=== PATIENT | female | born 1985 | race Caucasian/White ===

== ENCOUNTER → 2016-06-01 | Day surgery (SDC) | payer BC, OTHER ==
[~2016-06-01] VITALS: Ht 175.3 cm; Wt 81.6 kg
[~2016-06-01] MED LIST: ACETAMINOPHEN 650 MG SUPP As Ordered ONE; ACETAMINOPHEN 650 MG SUPP PR ONE; CHLOROPROCAINE 2 % INJ PRES.FREE 20 ML VIAL (J2400) As Ordered ONE; ERGO500014 PO; IBUPROFEN 800 MG TAB PO SCH; IRON1TAB PO; LIDOCAINE 2% INJ 100 MG/5 ML SDV (FOR ANES.) As Ordered ONE; LR 1,000 ML IV SCH; METOCLOPRAMIDE INJ 10MG/2ML VIAL (J2765) IV PRN; MIDAZOLAM INJ 2 MG/2 ML VIAL (J2250) As Ordered ONE; MULT1TAB10 PO; OMEP20CA3 PO; ONDANSETRON 4MG/2ML VIAL (J2405) As Ordered ONE; ONDANSETRON 4MG/2ML VIAL (J2405) IV PRN; PERCOCET 5MG/325MG TAB PO PRN; PROPOFOL 200 MG/20 ML VIAL As Ordered ONE; SUCR1TA PO; dexameTHASONE 4 MG/ML 1ML VIAL (J1100) As Ordered ONE; ePHEDrine SULFATE 25 MG/5 ML(5MG/ML) SYRINGE As Ordered ONE; fentaNYL 100 MCG/2 ML INJECTION (J3010) As Ordered ONE; fentaNYL 100 MCG/2 ML INJECTION (J3010) IV PRN
[2016-06-01 06:29] LABS: MEAN CORPUSCULAR HEMOGLOBIN 27.6 pg (27.0-33.0); MEAN CORPUSCULAR HGB CONC 33.3 g/dl (32.0-36.5); RED CELL DISTRIBUTION WIDTH 14.1 % (11.5-14.5)
[2016-06-01 06:42] LABS: CONTROL LINE HCG INT CTR LINE PRESENT
[2016-06-01 06:47] LABS: ANION GAP 5 MEQ/L (8-16); BLOOD UREA NITROGEN 11 MG/DL (7-18); CALCIUM LEVEL 9.2 MG/DL (8.5-10.1); CARBON DIOXIDE LEVEL 29 MEQ/L (21-32); CHLORIDE LEVEL 109 MEQ/L (98-107); GLOMERULAR FILTRATION RATE > 60.0 (>60); GLUCOSE, FASTING 86 MG/DL (70-105); POTASSIUM SERUM 4.2 MEQ/L (3.5-5.1); SODIUM LEVEL 143 MEQ/L (136-145)
--- NOTE | 2016-06-01 08:13 | RO ---
DATE OF PROCEDURE: 06/01/2016 Chayo is a 30-year-old female with extensive history of menorrhagia. Her had a vasectomy. She has an IUD in place for bleeding control. Continued to have heavy bleeding. After extensive counseling in the office, a decision was made for dilation and curettage, (D and C), hysteroscopy and NovaSure ablation. PREOPERATIVE DIAGNOSES: 1. Menometrorrhagia. 2. Presence of an intrauterine device. POSTOPERATIVE DIAGNOSES: 1. Menometrorrhagia. 2. Presence of an intrauterine device. PROCEDURE: 1. Dilation and curettage (D and C). 2. Hysteroscopy. 3. NovaSure endometrial ablation. 4. Removal of an intrauterine device. SURGEON: Dr. Keenan Alvarez. CONFIGURATION MANAGER: ANESTHESIA: Spinal. COMPLICATIONS: None. ESTIMATED BLOOD LOSS: Less than 100 mL. SPECIMEN SENT TO THE LAB: Endometrial curettings. PROCEDURE: After obtaining informed consent, the patient was taken to the operating room where spinal anesthetic was found to be adequate. She was then draped and prepped in the usual sterile fashion in dorsal lithotomy position. At this point, a straight catheter bladder was performed for approximately 200 mL of clear urine. We then placed a weighted speculum in the posterior fornix of the vagina. Using a Dickinson retractor, the anterior lip of the cervix was then grasped with a single-tooth tenaculum. Uterus was sound to approximately 9 cm giving a total cavity length of 6. At this point, the cervix was serially dilated. The hysteroscope was inserted. Normal appearing endometrial cavity was found with fluffy endometrium. The hysteroscope was removed and curettings were sent to pathology for final diagnosis. NovaSure device was then inserted. The endometrial cavity length was adjusted to 6. The cavity width to 3. After passing the cavity test, the device was enabled and the endometrial ablation cycle was then started. The cycle lasted approximately 1 minute and 10 seconds. Good ablative process noted. Good hemostasis noted. The patient tolerated the procedure well. She was then transferred to recovery room in stable condition.
[2016-06-01 10:00] VITALS: BP 141/73
== END | disposition home or self-care (01) ==
LOC: M SDC 05:53
PROVIDERS: ATTEND Obstetrics & Gynecology
DX: N92.4 Excessive bleeding in the premenopausal period (principal); Z30.432 Encounter for removal of intrauterine contraceptive device; J45.909 Unspecified asthma, uncomplicated; E78.00 Pure hypercholesterolemia, unspecified; K21.9 Gastro-esophageal reflux disease without esophagitis; D64.9 Anemia, unspecified; T88.59XD Other complications of anesthesia, subsequent encounter; J30.2 Other seasonal allergic rhinitis; Z91.09 Other allergy status, other than to drugs and biological substances; Z79.899 Other long term (current) drug therapy
CPT/HCPCS: 36415; 58301; 58563; 80048; 84703; 85027; 86850; 86900; 86901; 88305; C2618; J1100; J2250; J2400; J2405; J3010

== ENCOUNTER 2016-07-11 08:52 | Day surgery (SDC) | payer BC, OTHER ==
[~2016-07-11] VITALS: Ht 175.3 cm; Wt 81.6 kg
[~2016-07-11 08:52] MED LIST changes: -ACETAMINOPHEN 650 MG SUPP As Ordered ONE; -ACETAMINOPHEN 650 MG SUPP PR ONE; -CHLOROPROCAINE 2 % INJ PRES.FREE 20 ML VIAL (J2400) As Ordered ONE; -IBUPROFEN 800 MG TAB PO SCH; -LIDOCAINE 2% INJ 100 MG/5 ML SDV (FOR ANES.) As Ordered ONE; -LR 1,000 ML IV SCH; -METOCLOPRAMIDE INJ 10MG/2ML VIAL (J2765) IV PRN; -MIDAZOLAM INJ 2 MG/2 ML VIAL (J2250) As Ordered ONE; -ONDANSETRON 4MG/2ML VIAL (J2405) As Ordered ONE; -ONDANSETRON 4MG/2ML VIAL (J2405) IV PRN; -PERCOCET 5MG/325MG TAB PO PRN; -PROPOFOL 200 MG/20 ML VIAL As Ordered ONE; -dexameTHASONE 4 MG/ML 1ML VIAL (J1100) As Ordered ONE; -ePHEDrine SULFATE 25 MG/5 ML(5MG/ML) SYRINGE As Ordered ONE; -fentaNYL 100 MCG/2 ML INJECTION (J3010) As Ordered ONE; -fentaNYL 100 MCG/2 ML INJECTION (J3010) IV PRN
[2016-07-11] MEDS ORDERED: LR 1,000 ML IV SCH ×3 (09:00→14:45)
[2016-07-11] MEDS ORDERED: ACETAMINOPHEN 650 MG SUPP PR ONE (09:00)
[2016-07-11 09:18] LABS: MEAN CORPUSCULAR HEMOGLOBIN 28.2 pg (27.0-33.0); MEAN CORPUSCULAR HGB CONC 33.8 g/dl (32.0-36.5); MEAN CORPUSCULAR VOLUME 83.6 fl (80.0-96.0); RED CELL DISTRIBUTION WIDTH 12.6 % (11.5-14.5); WHITE BLOOD COUNT 5.5 K/mm3 (4.0-10.0)
[2016-07-11 09:35] LABS: CONTROL LINE HCG INT CTR LINE PRESENT
[2016-07-11 09:40] LABS: ANION GAP 7 MEQ/L (8-16); BLOOD UREA NITROGEN 10 MG/DL (7-18); CALCIUM LEVEL 9.1 MG/DL (8.5-10.1); CARBON DIOXIDE LEVEL 28 MEQ/L (21-32); CHLORIDE LEVEL 107 MEQ/L (98-107); CREATININE FOR GFR 0.63 MG/DL (0.55-1.02); GLOMERULAR FILTRATION RATE > 60.0 (>60); GLUCOSE, FASTING 84 MG/DL (70-105); POTASSIUM SERUM 4.6 MEQ/L (3.5-5.1); SODIUM LEVEL 142 MEQ/L (136-145)
[2016-07-11] MEDS ORDERED: ACETAMINOPHEN 650 MG SUPP As Ordered ONE (11:02)
[2016-07-11] MEDS ORDERED: FLUORESCEIN 10% (100MG/ML) 5 ML VIAL As Ordered ONE (11:02)
[2016-07-11] MEDS ORDERED: BUPIVACAINE/EPIN 0.25% 30 ML VIAL As Ordered ONE (11:02)
[2016-07-11] MEDS ORDERED: SCOPOLAMINE 1.5 MG TRANSDERMAL As Ordered ONE (11:03)
[2016-07-11] MEDS ORDERED: fentaNYL 250 MCG/5 ML INJECTION (J3010) As Ordered ONE (11:40)
[2016-07-11] MEDS ORDERED: MIDAZOLAM INJ 2 MG/2 ML VIAL (J2250) As Ordered ONE (11:41)
[2016-07-11] MEDS ORDERED: SCOPOLAMINE 1.5 MG TRANSDERMAL TOP ONE (11:45)
[2016-07-11] MEDS ORDERED: ONDANSETRON 4MG/2ML VIAL (J2405) As Ordered ONE (11:54)
[2016-07-11] MEDS ORDERED: GLYCOPYRROLATE INJ 0.2 MG/ML 2 ML VIAL As Ordered ONE ×2 (11:54→15:03)
[2016-07-11] MEDS ORDERED: LIDOCAINE 2% INJ 100 MG/5 ML SDV (FOR ANES.) As Ordered ONE (11:54)
[2016-07-11] MEDS ORDERED: METOCLOPRAMIDE INJ 10MG/2ML VIAL (J2765) As Ordered ONE (11:54)
[2016-07-11] MEDS ORDERED: ROCURONIUM BROMIDE 50 MG/5 ML VIAL As Ordered ONE (11:54)
[2016-07-11] MEDS ORDERED: PROPOFOL 200 MG/20 ML VIAL As Ordered ONE (11:54)
[2016-07-11] MEDS ORDERED: KETOROLAC 60 MG/2 ML VIAL (J1885) As Ordered ONE (11:54)
[2016-07-11] MEDS ORDERED: NEOSTIGMINE 1MG/ML 5 ML SYRINGE (J2710) As Ordered ONE (11:54)
[2016-07-11] MEDS ORDERED: HYDROmorphone HCL 2 MG/ML 1ML VIAL (J1170) As Ordered ONE (11:54)
[2016-07-11] MEDS ORDERED: PERCOCET PO (11:55)
[2016-07-11] MEDS ORDERED: BUPIVACAINE/EPIN 0.25% 30 ML VIAL XX ONE (12:11)
[2016-07-11] MEDS ORDERED: oxyCODONE 5MG TAB As Ordered ONE (14:37)
[2016-07-11] MEDS ORDERED: ONDANSETRON 4MG/2ML VIAL (J2405) IV PRN (14:45)
[2016-07-11] MEDS ORDERED: oxyCODONE 5MG TAB PO PRN (14:45)
[2016-07-11] MEDS ORDERED: fentaNYL 100 MCG/2 ML INJECTION (J3010) IV PRN (14:45)
[2016-07-11] MEDS ORDERED: MORPHINE 2 MG/ML 1ML SYRINGE IV PRN (14:45)
[2016-07-11] MEDS: LR 1,000 ML IV SCH ×2 (15:00→23:00)
[2016-07-11] MEDS: SIMETHICONE 80 MG CHEW TAB PO SCH ×2 (15:00→20:09)
[2016-07-11] MEDS ORDERED: GLYCOPYRROLATE INJ 0.2 MG/ML 2 ML VIAL IV PRN (15:30)
[2016-07-11 16:15] VITALS: BP 125/64
[2016-07-11 16:45] VITALS: BP 121/66
[2016-07-11 17:45] VITALS: BP 128/61
[2016-07-11 18:45] VITALS: BP 134/65
[2016-07-11] MEDS: PERCOCET 5MG/325MG TAB PO PRN (22:03)
[2016-07-11 22:30] VITALS: BP 114/60
[2016-07-12] MEDS: SIMETHICONE 80 MG CHEW TAB PO SCH ×2 (02:00→09:28)
[2016-07-12 02:02] VITALS: BP 105/52
[2016-07-12] MEDS: PERCOCET 5MG/325MG TAB PO PRN (02:05)
[2016-07-12] MEDS: LR 1,000 ML IV SCH (05:54)
[2016-07-12 06:12] VITALS: BP 130/60
--- NOTE | 2016-07-12 07:16 | RO ---
DATE OF PROCEDURE: 07/11/2016 Chayo is a 30-year-old female with extensive history of pelvic pain, abnormal uterine bleeding after an ablation. After extensive counseling in the office, a decision was made for robotic-assisted laparoscopic hysterectomy, removal of both tubes and possible cystoscopy. PREOPERATIVE DIAGNOSES: 1. Pelvic pain. 2. Abnormal uterine bleeding post endometrial ablation. POSTOPERATIVE DIAGNOSES: 1. Pelvic pain. 2. Abnormal uterine bleeding post endometrial ablation. PROCEDURE: 1. Single site robotic-assisted laparoscopic hysterectomy. 2. Bilateral salpingectomy. 3. Cystoscopy. ANESTHESIA: General: SURGEON: Keenan Alvarez DO [employer] INTERN: Yandy Guillory NP COMPLICATION: None. ESTIMATED BLOOD LOSS: Less than 50 mL. SPECIMEN SENT TO THE LAB: The uterus, cervix and tubes. DESCRIPTION OF PROCEDURE: After reviewing the operative procedure with the patient in the holding area and reaffirmed informed consent, patient was taken to the operating room where general anesthetic was found to be adequate. She was then draped and prepped in usual sterile fashion in the dorsal lithotomy position. At this point, a Valdez catheter was placed in the bladder for drainage. We then placed a HUMI II uterine manipulator for uterine manipulation. I then turned my attention to the abdomen where a 1-2 inch vertical incision was made above the umbilicus where the old scar was. This was carried down to the fascia. Fascia was incised in midline fashion and carried through laterally. We then opened up the peritoneum and entered the abdominal cavity. At this point, an Jon skin retractor was placed. The GelPort of the robotic single site device was placed in. The abdomen was insufflated with CO2 gas to approximately 3.5 liters. Patient was placed in steep Trendelenburg. The robot was brought in between the patient leg and the camera port was then docked. We then inserted the curve robotic arm 2 trocar and that the robotic arm was also docked in usual fashion. Another curve robotic trocar was placed on the right for robotic arm 1 and the robotic arm was docked in usual fashion. After proper docking of the robot, I then placed a bipolar grasper in arm 2 and a monopolar hook in arm 1. I unscrubbed and went over to the surgeon console to begin the surgery. The abdomen and pelvis was inspected. No abnormalities noted. At this point, the fallopian tube was held with a bipolar grasper and using the monopolar hook the mesosalpinx was transected, removing the fallopian tube down to the utero-ovarian ligament. The utero-ovarian ligament was cauterized with a bipolar cautery and cut with the monopolar hook. The round ligament cauterized in a similar fashion. At this point, the anterior leaflet of the broad ligament was dissected to create a bladder flap. The uterine artery on that side was skeletonized and the uterine artery was then coagulated and cut using the bipolar cautery and the monopolar hook. At this point, the anterior leaflet was carried down to the opposite side. The fallopian tube was transected in a similar fashion. Round ligament cauterized and cut. Utero-ovarian ligament cauterized and cut using the bipolar grasper and the monopolar hook. The uterine artery on that side was then skeletonized and the uterine artery was then coagulated and cut using the monopolar hook and the bipolar grasper. At this point, with traction towards the patient's head on the uterine manipulator, we were able to perform the uterine manipulator cut. The posterior colpotomy was also performed in a similar fashion. No evidence of any injury to the ureter or bladder. At this point, Furacin seen was given by the anesthesiologist for cystoscopy after the closure of the vaginal cuff. The monopolar hook was removed. A needle national flatbed truck driver was inserted. At this point, the camera was removed and a #2-0 V-Loc suture was introduced through the camera port. The camera was replaced and using the #2-0 V-Loc suture the vaginal cuff was closed in a running fashion. The peritoneum over the vaginal cuff was also closed with that same suture. Pelvis copiously irrigated with normal saline and suctioned out. I then on patient's side the robot was undocked and the #2-0 V-Loc suture was cut away and removed without any difficulty. The bladder was then retrograde with 250 mL of normal saline. A cystoscopy was performed. Bilateral urethral jets were noted. No evidence of any bladder injury noted. At this point, the cystoscope was removed. The Valdez catheter was placed back in the bladder. Attention turned to the abdomen where the Jon skin retractor was removed as well as the GelPort port for the robotic single site platform. Kristy clamp was placed at the level of the fascia, which was closed using #2-0 Vicryl suture in a running fashion. The subcutaneous layer was also closed in a running fashion. The skin was closed in a subcuticular fashion using a #3-0 Vicryl placed and 0.25% Marcaine was infiltrated for postoperative pain. The patient tolerated procedure well. She was then transferred to recovery room in stable condition.
== END 2016-07-12 10:20 | disposition home or self-care (01) ==
LOC: M SDC 08:52 → M OBS 16:49 → M SDC 07-12 10:20
PROVIDERS: ATTEND Obstetrics & Gynecology
DX: R10.2 Pelvic and perineal pain (principal); N93.9 Abnormal uterine and vaginal bleeding, unspecified; T88.59XD Other complications of anesthesia, subsequent encounter; K21.9 Gastro-esophageal reflux disease without esophagitis; D64.9 Anemia, unspecified; R23.3 Spontaneous ecchymoses; G89.29 Other chronic pain; J45.909 Unspecified asthma, uncomplicated; J30.2 Other seasonal allergic rhinitis; Z91.09 Other allergy status, other than to drugs and biological substances; Z98.84 Bariatric surgery status; Z87.81 Personal history of (healed) traumatic fracture; Z86.79 Personal history of other diseases of the circulatory system
CPT/HCPCS: 36415; 58571; 80048; 84703; 85027; 86850; 88307; 96374; J0690; J1170; J1885; J2250; J2405; J2710; J2765; J3010

== ENCOUNTER → 2017-09-18 | Outpatient (REF) | payer BC, OTHER ==
[2017-09-18 18:41] LABS: HEMATOCRIT 33.3 % (36.0-47.0); HEMOGLOBIN 10.5 g/dl (12.0-15.5); MEAN CORPUSCULAR HEMOGLOBIN 25.9 pg (27.0-33.0); MEAN CORPUSCULAR HGB CONC 31.5 g/dl (32.0-36.5); MEAN CORPUSCULAR VOLUME 82.2 fl (80.0-96.0); PLATELET COUNT, AUTOMATED 372 10^3/uL (150-450); RED BLOOD COUNT 4.05 10^6/uL (4.00-5.40); RED CELL DISTRIBUTION WIDTH 13.4 % (11.5-14.5); WHITE BLOOD COUNT 7.9 10^3/uL (4.0-10.0)
[2017-09-18 19:20] LABS: ANION GAP 7 MEQ/L (8-16); BLOOD UREA NITROGEN 13 MG/DL (7-18); CALCIUM LEVEL 9.4 MG/DL (8.5-10.1); CARBON DIOXIDE LEVEL 28 MEQ/L (21-32); CHLORIDE LEVEL 108 MEQ/L (98-107); CREATININE FOR GFR 0.81 MG/DL (0.55-1.30); FREE T4 0.98 NG/DL (0.76-1.46); GLOMERULAR FILTRATION RATE > 60.0 (>60); GLUCOSE, FASTING 93 MG/DL (70-100); POTASSIUM SERUM 4.7 MEQ/L (3.5-5.1); SODIUM LEVEL 143 MEQ/L (136-145)
== END ==
LOC: M SFHCADAM 18:20
DX: R00.2 Palpitations (principal); F41.9 Anxiety disorder, unspecified
CPT/HCPCS: 84443

== ENCOUNTER → 2017-10-02 | Outpatient (REF) | payer BC, OTHER ==
[2017-10-02 19:18] LABS: REASON FOR REVIEW ANEMIA / RBC MORPH; SLIDE REVIEW Report; SOURCE PERIPHERAL SMEAR
== END ==
LOC: M SFHCADAM 18:21
DX: D64.9 Anemia, unspecified (principal)

== ENCOUNTER → 2017-11-17 | Outpatient (CLI) | payer BC, OTHER | LOC: M ADAMS 12:27 | DX: R07.82 Intercostal pain (principal) | CPT/HCPCS: 71100 ==

== ENCOUNTER 2018-02-11 16:54 | Emergency (ER) | payer BC, OTHER ==
[2018-02-11] MEDS: ONDANSETRON 4MG/2ML VIAL (J2405) IV (19:22)
[2018-02-11] MEDS: KETOROLAC 30 MG/ML VIAL (J1885) IV (19:22)
[2018-02-11] MEDS: NS 1,000 ML IV (19:22)
[2018-02-11 19:32] LABS: BASO % 0.5 % (0.0-1.0); EOS # 0.2 10^3/uL (0.0-0.50); EOS % 2.2 % (0.0-3.0); HEMATOCRIT 33.6 % (36.0-47.0); IMMATURE GRANULOCYTE % 0.1 % (0-3.0); LYMPH # 2.9 10^3/uL (1.5-4.5); LYMPH % 37.5 % (24.0-44.0); MEAN CORPUSCULAR HEMOGLOBIN 26.1 pg (27.0-33.0); MEAN CORPUSCULAR HGB CONC 32.7 g/dl (32.0-36.5); MEAN CORPUSCULAR VOLUME 79.8 fl (80.0-96.0); MONO # 0.5 10^3/uL (0.0-0.8); MONO % 6.6 % (0.0-5.0); NEUTROPHILS # 4.1 10^3/uL (1.8-7.7); NEUTROPHILS % 53.1 % (36.0-66.0); PLATELET COUNT, AUTOMATED 318 10^3/uL (150-450); RED BLOOD COUNT 4.21 10^6/uL (4.00-5.40); RED CELL DISTRIBUTION WIDTH 14.3 % (11.5-14.5); WHITE BLOOD COUNT 7.8 10^3/uL (4.0-10.0)
[2018-02-11] MEDS: GASTROGRAFIN SOLUTION 30ML PO ×2 (19:40→20:10)
[2018-02-11 20:15] LABS: ALBUMIN 4.3 GM/DL (3.2-5.2); ALBUMIN/GLOBULIN RATIO 1.16 (1.00-1.93); ALKALINE PHOSPHATASE 94 U/L (45-117); ALT/SGPT 29 U/L (12-78); ANION GAP 9 MEQ/L (8-16); AST/SGOT 21 U/L (7-37); BILIRUBIN,TOTAL 0.7 MG/DL (0.2-1.0); BLOOD UREA NITROGEN 11 MG/DL (7-18); CALCIUM LEVEL 9.2 MG/DL (8.5-10.1); CARBON DIOXIDE LEVEL 26 MEQ/L (21-32); CHLORIDE LEVEL 106 MEQ/L (98-107); CREATININE FOR GFR 0.71 MG/DL (0.55-1.30); GLOMERULAR FILTRATION RATE > 60.0 (>60); GLUCOSE, FASTING 86 MG/DL (70-100); LIPASE 161 U/L (73-393); POTASSIUM SERUM 4.1 MEQ/L (3.5-5.1); SODIUM LEVEL 141 MEQ/L (136-145)
[2018-02-11] MEDS ORDERED: ISOVUE-370 76% 100ML VIAL (Q9967) As Ordered (21:26)
[2018-02-11] MEDS: DICYCLOMINE 10 MG CAP PO (23:08)
[2018-02-11] MEDS: MAGNESIUM CITRATE 300 ML BTL PO (23:08)
== END 2018-02-11 23:20 | disposition home or self-care (01) ==
LOC: M ED 16:54
DX: K59.00 Constipation, unspecified (principal); R10.30 Lower abdominal pain, unspecified; J45.909 Unspecified asthma, uncomplicated; Z98.84 Bariatric surgery status; J30.2 Other seasonal allergic rhinitis; Z79.899 Other long term (current) drug therapy; Z91.89 Other specified personal risk factors, not elsewhere classified
CPT/HCPCS: Q9963

== ENCOUNTER → 2018-02-11 | Outpatient (REF) | payer OTHER ==
[2018-02-11 13:31] LABS: APPEARANCE, URINE CLEAR (CLEAR); BACTERIA, URINE AUTO NEGATIVE (NEGATIVE); BILIRUBIN, URINE AUTO NEGATIVE (NEGATIVE); BLOOD, URINE BLOOD NEGATIVE (NEGATIVE); COLOR, URINE YELLOW (YELLOW); GLUCOSE, URINE (UA) AUTO NEGATIVE (NEGATIVE); KETONE, URINE AUTO NEGATIVE (NEGATIVE); LEUKOCYTE ESTERASE, URINE AUTO NEGATIVE (NEGATIVE); MUCUS, URINE SMALL (NEGATIVE); NITRITE, URINE AUTO NEGATIVE (NEGATIVE); PROTEIN, URINE AUTO NEGATIVE (NEGATIVE); RBC, URINE AUTO 0 /HPF (0-3); SPECIFIC GRAVITY URINE AUTO 1.019 (1.002-1.035); SQUAMOUS EPITHELIAL CELL UR AU 1 /HPF (0-6); WBC, URINE AUTO 1 /HPF (0-3)
== END ==
LOC: M SFHCADAM 12:28
DX: R30.0 Dysuria (principal)

== ENCOUNTER → 2018-08-09 | Outpatient (CLI) | payer BC, OTHER ==
[~2018-08-09] MED LIST changes: +BENT10CA PO; +PERCOCET PO; +WELL100T2 PO
[2018-08-11 10:37] LABS: TOTAL 25(OH) VITAMIN D 24.8 NG/ML (30.0-100.0)
== END ==
LOC: M ADAMS 10:50
PROVIDERS: ATTEND Nurse Practitioner Family
DX: R00.2 Palpitations (principal)